=== PATIENT | male | born 1965 | race Caucasian/White ===

== ENCOUNTER 2023-03-13 15:56 | Outpatient (CLI) | payer BC ==
[2023-03-13 16:43] LABS: Hematocrit 34.8 % (38.8-50.0); Hemoglobin 11.9 g/dL (13.5-17.5); Mean Corpuscular HGB CONC 34.2 g/dL (32.0-36.0); Mean Corpuscular Hemoglobin 32.3 pg (27.0-33.0); Mean Corpuscular Volume 94.6 fl (81.2-95.1); Mean Platelet Volume 10.8 fl (7.4-10.4); Platelet Count 200 10x3/uL (150-450); RBC Distribution Width 11.8 % (11.5-14.5); Red Blood Cell (RBC) Count 3.68 10x6/uL (4.32-5.72); White Blood Cell (WBC) Count 5.1 10x3/uL (3.5-10.5)
[2023-03-13 17:01] LABS: Anion Gap 12 mmol/L (10-20); BUN (Urea Nitrogen) 13 mg/dL (8.4-25.7); Calc. Creatinine Clearance 0 mL/min (70-130); Calcium 8.7 mg/dL (7.8-10.44); Carbon Dioxide 24 mmol/L (22-29); Chloride 104 mmol/L (98-107); Estimated GFR 102; Glucose 242 mg/dL (70-105); Sodium 136 mmol/L (136-145)
== END 2023-03-13 15:57 | disposition home or self-care (01) ==
LOC: LABBT 15:56
PROVIDERS: ATTEND Neurological Surgery
DX: Z01.818 Encounter for other preprocedural examination (principal); M51.26 Other intervertebral disc displacement, lumbar region; M48.061 Spinal stenosis, lumbar region without neurogenic claudication
CPT/HCPCS: 80048; 85027; 93005; 93010

== ENCOUNTER 2023-03-20 06:47 | Day surgery (SDC) | payer BC ==
[2023-03-13 16:13] VITALS: BMI 31.4
[2023-03-20] MEDS ORDERED: EPINEPHrine 1 MG/ML VIAL ONE (07:05)
[2023-03-20] MEDS ORDERED: Thrombin 5000 UNITS/5 ML VIAL ONE (07:05)
[2023-03-20] MEDS ORDERED: Bupivacaine PF 0.5% 30 ML VIAL ONE (07:05)
[2023-03-20] MEDS ORDERED: Ondansetron PF 4 MG/2 ML Vial ONE ×4 (07:47→11:48)
[2023-03-20] MEDS ORDERED: fentaNYL PF 100 MCG/2 ML SYRINGE ONE ×2 (07:47→10:26)
[2023-03-20] MEDS ORDERED: Rocuronium Bromide 10 MG/ML (10ML VIAL) ONE ×2 (07:47→09:12)
[2023-03-20] MEDS ORDERED: Lidocaine 1% PF 5 ML VIAL ONE ×2 (07:47→09:12)
[2023-03-20] MEDS ORDERED: PROPOFOL 20 ML ONE (07:47)
[2023-03-20] MEDS ORDERED: PHENYLEPHRINE-NS 100 MCG/ML 10 ML SYRINGE ONE (07:47)
[2023-03-20] MEDS ORDERED: Midazolam HCl 2 mg/2 ml Vial ONE (07:50)
[2023-03-20] MEDS ORDERED: Sodium Chloride 0.9% 100 ML ONE ×2 (08:34→12:42)
[2023-03-20] MEDS ORDERED: CEFAZOLIN 2 GM VIAL ONE ×2 (08:34→12:42)
[2023-03-20] MEDS ORDERED: Glycopyrrolate 0.2 MG/ML 5 ML SYRINGE ONE ×2 (09:12→10:31)
[2023-03-20] MEDS ORDERED: Dexamethasone 20 MG/5 ML VIAL ONE ×3 (09:12→11:48)
[2023-03-20] MEDS ORDERED: Ketorolac Tromethamine 30 MG/ML VIAL ONE (09:12)
[2023-03-20] MEDS ORDERED: NEOSTIGMINE 3 MG/3 ML SYR 3 MG/3 ML SYRINGE ONE ×3 (09:12→10:30)
[2023-03-20] MEDS ORDERED: ePHEDrine Sulfate 50 MG/10 ML VIAL ONE ×2 (09:12→09:57)
[2023-03-20] MEDS ORDERED: PROPOFOL 200 MG/20 ML VIAL ONE (09:12)
[2023-03-20] MEDS ORDERED: HYDROmorphone 2 MG/ML VIAL SLOW IVP PRN (10:12)
[2023-03-20] MEDS ORDERED: PACU-Morphine 4MG/ML VIAL SLOW IVP PRN (10:12)
[2023-03-20] MEDS ORDERED: Promethazine HCl 25 MG/ML VIAL IM PRN (10:12)
[2023-03-20] MEDS ORDERED: Ondansetron HCl/PF 4 MG/2 ML Vial IVP PRN (10:12)
[2023-03-20] MEDS ORDERED: Morphine Sulfate 2 MG/ML SYRINGE SLOW IVP PRN (10:12)
[2023-03-20] MEDS ORDERED: HYDROmorphone 2 MG/ML VIAL ONE (10:56)
[2023-03-20] MEDS ORDERED: Tamsulosin HCl 0.4 MG CAP ONE (10:59)
[2023-03-20] MEDS ORDERED: Cyclobenzaprine 10 MG TAB ONE (11:07)
[2023-03-20] MEDS ORDERED: Fentanyl 250 MCG/5 ML VIAL ONE ×2 (11:09→11:12)
== END 2023-03-20 14:00 | disposition home or self-care (01) ==
LOC: SDC 06:47
PROVIDERS: ATTEND Neurological Surgery
PROC: 01NB0ZZ Release Lumbar Nerve, Open Approach (ICD-10-PCS; principal; 2023-03-20)
DX: M48.061 Spinal stenosis, lumbar region without neurogenic claudication (principal); M54.16 Radiculopathy, lumbar region; E11.9 Type 2 diabetes mellitus without complications; G89.29 Other chronic pain; Z79.84 Long term (current) use of oral hypoglycemic drugs; Z79.899 Other long term (current) drug therapy
CPT/HCPCS: J0171; J1100; J1170; J1885; J2250; J2405; J2704; J3010; J3490; S0020

== ENCOUNTER 2023-09-20 15:36 | Outpatient (CLI) | payer BC | END 2023-09-20 15:37 | disposition home or self-care (01) | LOC: CT 15:36 | PROVIDERS: ATTEND Neurological Surgery | DX: M43.16 Spondylolisthesis, lumbar region (principal); M47.816 Spondylosis without myelopathy or radiculopathy, lumbar region; M47.817 Spondylosis without myelopathy or radiculopathy, lumbosacral region; M47.815 Spondylosis without myelopathy or radiculopathy, thoracolumbar region | CPT/HCPCS: 72131 ==

== ENCOUNTER 2023-09-26 17:02 | Outpatient (CLI) | payer BC ==
[2023-09-26 18:02] LABS: Hematocrit 34.3 % (38.8-50.0); Hemoglobin 12.1 g/dL (13.5-17.5); Mean Corpuscular HGB CONC 35.3 g/dL (32.0-36.0); Mean Corpuscular Hemoglobin 32.4 pg (27.0-33.0); Mean Corpuscular Volume 91.7 fL (81.2-95.1); Mean Platelet Volume 10.7 fL (7.4-10.4); Platelet Count 196 10x3/uL (150-450); RBC Distribution Width 12.3 % (11.5-14.5); Red Blood Cell (RBC) Count 3.74 10x6/uL (4.32-5.72); White Blood Cell (WBC) Count 5.2 10x3/uL (3.5-10.5)
[2023-09-26 18:07] LABS: Anion Gap 12 mmol/L (10-20); BUN (Urea Nitrogen) 18 mg/dL (8.4-25.7); Calc. Creatinine Clearance 0 mL/min (70-130); Calcium 8.9 mg/dL (7.8-10.44); Carbon Dioxide 26 mmol/L (22-29); Chloride 102 mmol/L (98-107); Estimated GFR 96; Glucose 286 mg/dL (70-105); Sodium 136 mmol/L (136-145)
== END 2023-09-26 17:03 | disposition home or self-care (01) ==
LOC: LABBT 17:02
PROVIDERS: ATTEND Neurological Surgery
DX: Z01.818 Encounter for other preprocedural examination (principal); M54.16 Radiculopathy, lumbar region; M43.16 Spondylolisthesis, lumbar region
CPT/HCPCS: 80048; 85027; 93005; 93010

== ENCOUNTER 2023-10-02 06:21 | Day surgery (SDC) | payer BC ==
[2023-10-01 11:01] VITALS: BMI 30.7
[2023-10-02] MEDS ORDERED: Midazolam HCl 2 mg/2 ml Vial ONE (07:24)
[2023-10-02] MEDS ORDERED: Bupivacaine PF 0.5% 30 ML VIAL ONE (08:08)
[2023-10-02] MEDS ORDERED: Thrombin 5000 UNITS/5 ML VIAL ONE (08:08)
[2023-10-02] MEDS ORDERED: EPINEPHrine 1 MG/ML VIAL ONE (08:08)
[2023-10-02] MEDS ORDERED: Rocuronium Bromide 10 MG/ML (10ML VIAL) ONE (08:43)
[2023-10-02] MEDS ORDERED: Fentanyl 250 MCG/5 ML VIAL ONE ×2 (08:43→11:59)
[2023-10-02] MEDS ORDERED: Lidocaine 1% PF 5 ML VIAL ONE (08:43)
[2023-10-02] MEDS ORDERED: PROPOFOL 20 ML ONE (08:43)
[2023-10-02] MEDS ORDERED: CEFAZOLIN 2 GM VIAL ONE ×2 (08:44→13:57)
[2023-10-02] MEDS ORDERED: Sodium Chloride 0.9% 100 ML ONE ×2 (08:45→13:57)
[2023-10-02] MEDS ORDERED: Ketorolac Tromethamine 30 MG (1 mL) VIAL ONE (09:28)
[2023-10-02] MEDS ORDERED: Dexamethasone 20 MG/5 ML VIAL ONE (09:28)
[2023-10-02] MEDS ORDERED: Ondansetron PF 4 MG/2 ML Vial ONE (09:28)
[2023-10-02] MEDS ORDERED: PHENYLEPHRINE-NS 100 MCG/ML 10 ML SYRINGE ONE (10:26)
[2023-10-02] MEDS ORDERED: Vecuronium 10 MG VIAL ONE (10:42)
[2023-10-02] MEDS ORDERED: Ondansetron HCl/PF 4 MG/2 ML Vial IVP PRN (11:15)
[2023-10-02] MEDS ORDERED: HYDROmorphone 2 MG/ML VIAL SLOW IVP PRN (11:15)
[2023-10-02] MEDS ORDERED: Morphine Sulfate 2 MG/ML SYRINGE SLOW IVP PRN (11:15)
[2023-10-02] MEDS ORDERED: Promethazine HCl 25 MG/ML VIAL IM PRN (11:15)
[2023-10-02] MEDS ORDERED: PACU-Morphine 4MG/ML VIAL SLOW IVP PRN (11:15)
[2023-10-02] MEDS ORDERED: NEOSTIGMINE 3 MG/3 ML SYRINGE ONE (11:22)
[2023-10-02] MEDS ORDERED: Glycopyrrolate 0.2 MG/ML 5 ML SYRINGE ONE (11:22)
[2023-10-02] MEDS ORDERED: hydrALAZINE 20 MG/ML VIAL ONE (11:48)
[2023-10-02] MEDS ORDERED: Tamsulosin HCl 0.4 MG CAP ONE (11:59)
[2023-10-02] MEDS ORDERED: HYDROmorphone 0.5 MG/0.5 ML SYRINGE ONE (12:08)
[2023-10-02] MEDS ORDERED: HYDROcodone/Acetaminophen 10/325 mg Tablet ONE (13:57)
[2023-10-02] MEDS ORDERED: Cyclobenzaprine 10 MG TAB ONE (16:08)
[2023-10-02] MEDS ORDERED: HYDROcodone/Acetaminophen 5/325 mg Tablet ONE (18:14)
== END 2023-10-02 18:24 | disposition home or self-care (01) ==
LOC: SDC 06:21
PROVIDERS: ATTEND Neurological Surgery
PROC: 0SG0071 Fusion of Lumbar Vertebral Joint with Autologous Tissue Substitute, Posterior Approach, Posterior Column, Open Approach (ICD-10-PCS; principal; 2023-10-02)
DX: M43.16 Spondylolisthesis, lumbar region (principal); M48.061 Spinal stenosis, lumbar region without neurogenic claudication; M51.16 Intervertebral disc disorders with radiculopathy, lumbar region; E11.9 Type 2 diabetes mellitus without complications; Z79.84 Long term (current) use of oral hypoglycemic drugs; Z79.899 Other long term (current) drug therapy; Z95.1 Presence of aortocoronary bypass graft
CPT/HCPCS: C1713; C1889; J0171; J0360; J0665; J1100; J1170; J1885; J2250; J2405; J2704; J3010; J3490

== ENCOUNTER 2024-11-22 10:26 | Emergency (ER) | payer BC, SELFPAY ==
[2024-11-22] MEDS ORDERED: Lidocaine 1% (PF) 30 ML VIAL ONE (10:57)
== END 2024-11-22 11:53 | disposition home or self-care (01) ==
LOC: ERS 10:26
DX: L02.412 Cutaneous abscess of left axilla (principal); I10 Essential (primary) hypertension; F17.210 Nicotine dependence, cigarettes, uncomplicated
CPT/HCPCS: 10060